=== PATIENT | female | born 1985 | race Caucasian/White ===

== ENCOUNTER 2017-12-07 04:20 | Emergency (ER) | payer OTHER ==
[~2017-12-07] VITALS: Ht 152.4 cm; Wt 68.1 kg
[~2017-12-07 04:20] MED LIST: COUMADIN5 MG PO; ENDOCET 5-3251 EACH PO; FLEXERIL5 MG PO; IBUPROFEN800 MG PO; KENALOG IN ORABA5 GM DT; LOVENOX80 MG/0.8 SC; PRENATAL COMPL1 EACH PO; VITAMIN D2000 UNIT PO
[2017-12-07] MEDS ORDERED: ZITHROMAX Z-PA250 MG PO (06:45)
[2017-12-07 06:56] VITALS: BP 106/74
== END 2017-12-07 06:58 | disposition home or self-care (01) ==
LOC: EME 04:20
DX: O99.511 Diseases of the respiratory system complicating pregnancy, first trimester (principal); J40 Bronchitis, not specified as acute or chronic; Z3A.08 8 weeks gestation of pregnancy; O16.1 Unspecified maternal hypertension, first trimester; O99.341 Other mental disorders complicating pregnancy, first trimester; F41.9 Anxiety disorder, unspecified; Z79.82 Long term (current) use of aspirin
CPT/HCPCS: 99281; 99283

== ENCOUNTER 2018-06-18 15:31 | Outpatient (CLI) | payer OTHER ==
[~2018-06-18 15:31] MED LIST changes: +ZITHROMAX Z-PA250 MG PO
[2018-06-18 15:57] VITALS: BP 141/84
[2018-06-18 16:16] LABS: BASOPHIL (%) 0.3 % (0-1); EOSINOPHIL (%) 0.9 % (0-5); EOSINOPHIL COUNT 0.1 K/uL (0-0.3); HEMATOCRIT 34.2 % (36.0-46.0); HEMOGLOBIN 11.7 G/DL (11.9-15.5); IMMATURE GRANULOCYTE (%) 1.2 % (0.0-0.7); LYMPHOCYTE (%) 18.5 % (15-42); MCH 30.6 PG (29.0-34.0); MCHC 34.2 G/DL (30.0-36.0); MCV 89.5 FL (83-99); MONOCYTE (%) 6.4 % (3-12); MONOCYTE COUNT 0.7 K/uL (0-0.8); NEUTROPHIL (%) 72.7 % (45-76); PLATELET COUNT 193 K/uL (156-360); RBC DIS.WIDTH-CV 13.9 % (11.8-14.6); RBC DIS.WIDTH-SD 44.9 % (39-53); RED BLOOD COUNT 3.82 M/uL (3.80-5.20); WHITE BLOOD COUNT 10.9 K/uL (4.1-10.2)
[2018-06-18 16:28] VITALS: BP 133/86
[2018-06-18 16:28] LABS: ALBUMIN 3.5 G/DL (3.2-4.8); CHLORIDE 101 MEQ/L (99-109); POTASSIUM 3.6 MEQ/L (3.7-5.4); SODIUM 137 MEQ/L (136-147); TOTAL BILIRUBIN 0.5 MG/DL (0.0-1.0)
[2018-06-18 16:34] LABS: ALKALINE PHOSPHATASE 100 IU/L (3-129); ALT (GPT) 9 IU/L (3-49); AST (GOT) 13 IU/L (2-34); CREATININE 0.6 MG/DL (0.6-1.3); GFR ESTIMATE (CALCULATED) > 59 mL/min/; GLUCOSE 110 mg/dL (70-99); TOTAL PROTEIN 6.3 G/DL (6.4-8.3); UREA NITROGEN (BUN) 8 mg/dL (9-23)
[2018-06-18 16:53] LABS: UR CREATININE CONCENTRATION 159.2 MG/DL
[2018-06-18 16:59] VITALS: BP 129/88
== END 2018-06-18 17:41 | disposition home or self-care (01) ==
LOC: LDRP-OP 15:31 → 2WEST 15:32 → LDRP-OP 08-22 07:06
PROVIDERS: Advanced Practice Midwife
DX: O13.3 Gestational [pregnancy-induced] hypertension without significant proteinuria, third trimester (principal); Z3A.35 35 weeks gestation of pregnancy
CPT/HCPCS: 59025; 80053; 82570; 84156; 85025; G0378

== ENCOUNTER 2018-06-25 14:30 | Outpatient (CLI) | payer OTHER ==
[~2018-06-25] VITALS: Ht 152.4 cm; Wt 78.0 kg
[2018-06-25 14:42] VITALS: BP 137/93
[2018-06-25 14:58] VITALS: BP 130/90
[2018-06-25] MEDS ORDERED: PRENATAL TABLE1 EAC3 PO (14:58)
[2018-06-25] MEDS ORDERED: LOVENOX40 MG/0.4 SC (14:58)
[2018-06-25] MEDS ORDERED: TUMS500 MG PO (14:59)
[2018-06-25 15:13] VITALS: BP 127/82
[2018-06-25 15:28] VITALS: BP 122/85
[2018-06-25 15:34] LABS: BASOPHIL (%) 0.2 % (0-1); EOSINOPHIL (%) 0.6 % (0-5); EOSINOPHIL COUNT 0.1 K/uL (0-0.3); HEMATOCRIT 31.2 % (36.0-46.0); HEMOGLOBIN 11.2 G/DL (11.9-15.5); IMMATURE GRANULOCYTE (%) 1.4 % (0.0-0.7); LYMPHOCYTE (%) 20.8 % (15-42); LYMPHOCYTE COUNT 1.8 K/uL (1.0-2.8); MCH 31.2 PG (29.0-34.0); MCHC 35.9 G/DL (30.0-36.0); MCV 86.9 FL (83-99); MONOCYTE (%) 6.8 % (3-12); MONOCYTE COUNT 0.6 K/uL (0-0.8); NEUTROPHIL (%) 70.2 % (45-76); NEUTROPHIL COUNT 6.2 K/uL (1.8-6.4); PLATELET COUNT 213 K/uL (156-360); RBC DIS.WIDTH-CV 13.6 % (11.8-14.6); RBC DIS.WIDTH-SD 42.4 % (39-53); RED BLOOD COUNT 3.59 M/uL (3.80-5.20); WHITE BLOOD COUNT 8.8 K/uL (4.1-10.2)
[2018-06-25 15:43] VITALS: BP 129/86
[2018-06-25 15:44] LABS: ALBUMIN 3.5 g/dL (3.2-4.8); CHLORIDE 103 mEq/L (99-109); POTASSIUM 3.5 mEq/L (3.7-5.4); SODIUM 136 mEq/L (136-147)
[2018-06-25 15:46] LABS: GLUCOSE 82 mg/dL (70-99)
[2018-06-25 15:47] LABS: TOTAL PROTEIN 6.3 g/dL (6.4-8.3)
[2018-06-25 15:48] LABS: TOTAL BILIRUBIN 0.4 mg/dL (0.0-1.0)
[2018-06-25 15:50] LABS: UR CREATININE CONCENTRATION 94.2 MG/DL
[2018-06-25 15:50] LABS: ALKALINE PHOSPHATASE 112 IU/L (3-129); CREATININE 0.6 mg/dL (0.6-1.3); GFR ESTIMATE (CALCULATED) > 59 mL/min/
[2018-06-25 15:51] LABS: UREA NITROGEN (BUN) 11 mg/dL (9-23)
[2018-06-25 15:52] LABS: AST (GOT) 15 IU/L (2-34)
[2018-06-25 15:53] LABS: ALT (GPT) 10 IU/L (3-49)
[2018-06-25 16:17] VITALS: BP 138/96
== END 2018-06-25 16:55 | disposition home or self-care (01) ==
LOC: LDRP-OP 14:30 → 2WEST 14:31 → LDRP-OP 08-22 18:52
PROVIDERS: Advanced Practice Midwife
DX: O26.893 Other specified pregnancy related conditions, third trimester (principal); R03.0 Elevated blood-pressure reading, without diagnosis of hypertension; R42 Dizziness and giddiness; Z3A.36 36 weeks gestation of pregnancy
CPT/HCPCS: 59025; 80053; 82570; 84156; 85025; G0378

== ENCOUNTER 2018-07-08 15:44 | Inpatient (IN) | payer OTHER ==
[~2018-07-08] VITALS: Ht 152.4 cm; Wt 87.9 kg
[2018-07-08] VITALS (10 sets, daily range): BP systolic 123–149; BP diastolic 76–97
[~2018-07-08 15:44] MED LIST changes: +LOVENOX40 MG/0.4 SC; +PRENATAL TABLE1 EAC3 PO; +TUMS500 MG PO
[2018-07-08 16:46] LABS: ALBUMIN 3.4 g/dL (3.2-4.8); CHLORIDE 102 mEq/L (99-109); POTASSIUM 3.6 mEq/L (3.7-5.4); SODIUM 133 mEq/L (136-147)
[2018-07-08 16:48] LABS: GLUCOSE 81 mg/dL (70-99); TOTAL PROTEIN 7.7 g/dL (6.4-8.3)
[2018-07-08 16:50] LABS: TOTAL BILIRUBIN 0.3 mg/dL (0.0-1.0)
[2018-07-08 16:51] LABS: ALKALINE PHOSPHATASE 116 IU/L (3-129)
[2018-07-08 16:52] LABS: CREATININE 0.6 mg/dL (0.6-1.3); GFR ESTIMATE (CALCULATED) > 59 mL/min/
[2018-07-08 16:53] LABS: UREA NITROGEN (BUN) 7 mg/dL (9-23)
[2018-07-08 16:54] LABS: AST (GOT) 16 IU/L (2-34)
[2018-07-08 16:55] LABS: ALT (GPT) 8 IU/L (3-49)
[2018-07-08] MEDS ORDERED: HEPARIN LO10 UNITS/M IV (16:55)
[2018-07-08] MEDS ORDERED: HEPARIN SO5000 UNIT3 SC (16:56)
[2018-07-08 17:00] LABS: BASOPHIL (%) 0.3 % (0-1); EOSINOPHIL (%) 1.1 % (0-5); EOSINOPHIL COUNT 0.1 K/uL (0-0.3); HEMATOCRIT 31.4 % (36.0-46.0); HEMOGLOBIN 11.9 G/DL (11.9-15.5); IMMATURE GRANULOCYTE (%) 1.3 % (0.0-0.7); LYMPHOCYTE (%) 20.4 % (15-42); LYMPHOCYTE COUNT 1.8 K/uL (1.0-2.8); MCH 33.3 PG (29.0-34.0); MCHC 37.9 G/DL (30.0-36.0); MONOCYTE (%) 8.5 % (3-12); MONOCYTE COUNT 0.8 K/uL (0-0.8); NEUTROPHIL (%) 68.4 % (45-76); NEUTROPHIL COUNT 6.1 K/uL (1.8-6.4); PLATELET COUNT 198 K/uL (156-360); RBC DIS.WIDTH-CV 13.6 % (11.8-14.6); RBC DIS.WIDTH-SD 44.4 % (39-53); RED BLOOD COUNT 3.57 M/uL (3.80-5.20)
[2018-07-08 17:32] LABS: UR CREATININE CONCENTRATION 106.3 MG/DL
[2018-07-08 22:26] LABS: AMPHETAMINE NEGATIVE (500 ng/mL); BARBITURATES NEGATIVE (200 ng/mL); BENZODIAZEPINES NEGATIVE (150 ng/mL); BUPRENORPHINE NEGATIVE (10 ng/mL); COCAINE NEGATIVE (150 ng/mL); METHADONE NEGATIVE (200 ng/mL); METHAMPHETAMINE NEGATIVE (500 ng/mL); OPIATES (MORPHINE) NEGATIVE (100 ng/mL); OXYCODONE NEGATIVE (100 ng/mL); PHENCYCLIDINE NEGATIVE (25 ng/mL); PROPOXYPHENE NEGATIVE (300 ng/mL); THC CANNABINOIDS NEGATIVE (50 ng/mL); TRICYCLIC ANTIDEPRESSANTS NEGATIVE (300 ng/mL)
[2018-07-09] VITALS (34 sets, daily range): BP systolic 117–164; BP diastolic 72–98
[2018-07-09] MEDS ORDERED: MOTRIN800 MG PO (14:53)
[2018-07-09] MEDS ORDERED: LOVENOX40 MG/0.4 SC (14:53)
[2018-07-10 03:51] VITALS: BP 135/82
[2018-07-10 06:40] LABS: BASOPHIL (%) 0.2 % (0-1); EOSINOPHIL COUNT 0.1 K/uL (0-0.3); HEMOGLOBIN 10.1 G/DL (11.9-15.5); LYMPHOCYTE (%) 18.4 % (15-42); LYMPHOCYTE COUNT 2.1 K/uL (1.0-2.8); MCH 30.8 PG (29.0-34.0); MCHC 34.8 G/DL (30.0-36.0); MCV 88.4 FL (83-99); MONOCYTE (%) 7.2 % (3-12); MONOCYTE COUNT 0.8 K/uL (0-0.8); NEUTROPHIL (%) 72.2 % (45-76); PLATELET COUNT 149 K/uL (156-360); RBC DIS.WIDTH-CV 13.8 % (11.8-14.6); RBC DIS.WIDTH-SD 45.1 % (39-53); RED BLOOD COUNT 3.28 M/uL (3.80-5.20); WHITE BLOOD COUNT 11.1 K/uL (4.1-10.2)
[2018-07-10 08:59] VITALS: BP 134/89
[2018-07-10 12:49] VITALS: BP 133/78
[2018-07-10 16:46] VITALS: BP 137/90
[2018-07-10 20:16] VITALS: BP 137/96
[2018-07-10 23:22] VITALS: BP 134/76
[2018-07-11 03:09] VITALS: BP 139/78
[2018-07-11 08:27] VITALS: BP 123/75
[2018-07-11 14:13] VITALS: BP 139/94
[2018-07-11 15:26] VITALS: BP 141/97
== END 2018-07-11 18:10 | disposition home or self-care (01) | DRG 775 ==
LOC: LDRP-OP 15:44 → 2WEST 15:45 → LDRP-OP 08-22 18:07
PROVIDERS: Midwife; Nurse Practitioner
PROC: 3E033VJ Introduction of Other Hormone into Peripheral Vein, Percutaneous Approach (ICD-10-PCS; principal; 2018-07-08)
PROC: 10907ZC Drainage of Amniotic Fluid, Therapeutic from Products of Conception, Via Natural or Artificial Opening (ICD-10-PCS; 2018-07-09)
PROC: 3E0R3BZ Introduction of Anesthetic Agent into Spinal Canal, Percutaneous Approach (ICD-10-PCS; 2018-07-09)
PROC: 00HU33Z Insertion of Infusion Device into Spinal Canal, Percutaneous Approach (ICD-10-PCS; 2018-07-09)
PROC: 10E0XZZ Delivery of Products of Conception, External Approach (ICD-10-PCS; 2018-07-09)
DX: O13.4 Gestational [pregnancy-induced] hypertension without significant proteinuria, complicating childbirth (principal); Z3A.38 38 weeks gestation of pregnancy; Z37.0 Single live birth; O69.81X0 Labor and delivery complicated by cord around neck, without compression, not applicable or unspecified
CPT/HCPCS: 80053; 82570; 84156; 85025; C1755; G0378; J1200; J1650; J2300; J3010; J7120